=== PATIENT | male | born 1955 | race Caucasian/White ===

== ENCOUNTER 2018-01-09 09:45 | Emergency (ER) | payer OTHER ==
[~2018-01-09] VITALS: Ht 269.2 cm; Wt 91.7 kg
[2018-01-09 10:16] VITALS: Ht 269.2 cm; Wt 91.7 kg
[2018-01-09 11:43] VITALS: BP 145/81
== END 2018-01-09 11:43 | disposition home or self-care (01) ==
LOC: ED 09:45
DX: M94.0 Chondrocostal junction syndrome [Tietze] (principal)
CPT/HCPCS: J1885; Q0092

== ENCOUNTER 2019-09-19 03:35 | Emergency (ER) | payer OTHER ==
[2019-09-19 03:41] VITALS: BP 138/81; Ht 172.7 cm
== END 2019-09-19 04:45 | disposition home or self-care (01) ==
LOC: ED 03:35
DX: R21 Rash and other nonspecific skin eruption (principal); L29.9 Pruritus, unspecified; Z98.890 Other specified postprocedural states